=== PATIENT | male | born 1965 | race Caucasian/White ===

== ENCOUNTER 2017-04-16 09:33 | Day surgery (SDC) | payer OTHER ==
[~2017-04-16 09:33] MED LIST: Lactated Ringers 1,000 ML IV SCH
[2017-04-16] MEDS ORDERED: Octyl 2-Cyanoacrylate 1 Tube ONE (09:34)
[2017-04-16] MEDS ORDERED: Bupivacaine 0.25%/EPINEPHrine 1:200,000 10 ML SDV ONE (09:34)
[2017-04-16] MEDS ORDERED: fentaNYL 100 MCG/2 ML SDV ONE ×2 (09:35→11:08)
[2017-04-16] MEDS ORDERED: Midazolam 1 MG/ML 2 ML SDV ONE (09:35)
[2017-04-16] MEDS ORDERED: Propofol 200 MG/20 ML SDV ONE (09:35)
[2017-04-16] MEDS ORDERED: Ondansetron 4 MG/2 ML SDV ONE (09:37)
[2017-04-16] MEDS ORDERED: Dexamethasone 4 MG/ML 5 ML MDV ONE (09:37)
--- NOTE | 2017-04-16 10:30 | PCM.PREANE ---
Preanesthetic Assessment - Anesthesia/Transfusion/Family Hx Anesthesia History: Prior Anesthesia Without Reaction Family History of Anesthesia Reaction: No Transfusion History: No Prior Transfusion(s) - Review of Systems General: No Symptoms Pulmonary: No Symptoms Cardiovascular: No Symptoms Gastrointestinal: No Symptoms Neurological: No Symptoms Other: Reports: None - Physical Assessment NPO Status Date: 04/15/17 O2 Sat by Pulse Oximetry: 96 Respiratory Rate: 16 Vital Signs: Last Vital Signs Temp 36.7 C 04/16/17 10:10 Pulse 62 04/16/17 10:10 Resp 16 04/16/17 10:10 BP 127/85 04/16/17 10:10 Pulse Ox 96 04/16/17 10:10 Height: 1.85 m Weight: 117.027 kg ASA Class: 2 Mental Status: Alert & Oriented x3 Airway Class: Mallampati = 2 Dentition: Reports: Normal Dentition ROM/Head Extension: Full Lungs: Clear to Auscultation, Normal Respiratory Effort Cardiovascular: Regular Rate, Regular Rhythm - Allergies Allergies/Adverse Reactions: Allergies Allergy/AdvReac Type Severity Reaction Status Date / Time No Known Allergies Allergy Verified 04/13/17 14:05 - Acknowledgements Anesthesia Type Planned: General Anesthesia Pt an Appropriate Candidate for the Planned Anesthesia: Yes Alternatives and Risks of Anesthesia Discussed w Pt/Guardian: Yes Pt/Guardian Understands and Agrees with Anesthesia Plan: Yes PreAnesthesia Questionnaire HEENT History: Reports: Allergic Rhinitis, Hard of Hearing Endocrine/Metabolic History: Reports: Obesity/BMI 30+ - Past Surgical History HEENT Surgical History: Reports: Tonsillectomy GI Surgical History: Reports: Cholecystectomy Musculoskeletal Surgical History: Reports: Other (See Below) Other Musculoskeletal Surgeries/Procedures:: repair of torn ligaments left ankle - SUBSTANCE USE Smoking Status *Q: Never Smoker Recreational Drug Use History: No - HOME MEDS Home Medications: Home Meds Cyanocobalamin (Vitamin B-12) [Vitamin B-12] 1,000 mg PO DAILY 04/13/17 [History ] Fluticasone Propionate [Flonase Allergy Relief] 1 spray NASBOTH DAILY 04/13/17 [ History] Tumeric 1 cap PO DAILY 04/13/17 [History] diphenhydrAMINE HCl [Benadryl Allergy] 25 mg PO BID 04/13/17 [History] - CURRENT (IN HOUSE) MEDS Current Meds: Current Medications Fentanyl (Sublimaze) 50 mcg IVPUSH Q5M PRN PRN Reason: Pain (moderate 4-6) Stop: 04/16/17 14:00 Lactated Ringer's (Ringers, Lactated) 1,000 mls @ 100 mls/hr IV ASDIRECTED [facility] Last Admin: 04/16/17 10:09 Dose: 100 mls/hr Discontinued Medications Bupivacaine HCl/Epinephrine Bitart (Marcaine 0.25%/Epinephrine 1:200,000) Confirm Administered Dose 30 ml .ROUTE .STK-MED ONE Stop: 04/16/17 09:35 Dexamethasone (Dexamethasone) Confirm Administered Dose 20 mg .ROUTE .STK-MED ONE Stop: 04/16/17 09:38 Fentanyl (Sublimaze) Confirm Administered Dose 100 mcg .ROUTE .STK-MED ONE Stop: 04/16/17 09:36 Lidocaine HCl (Xylocaine-Mpf 1%) Confirm Administered Dose 5 ml .ROUTE .STK-MED ONE Stop: 04/16/17 09:37 Midazolam HCl (Versed 1 Mg/Ml) Confirm Administered Dose 2 mg .ROUTE .STK-MED ONE Stop: 04/16/17 09:36 Octyl Cyanoacrylate (Dermabond Advance) Confirm Administered Dose 1 applic .ROUTE .STK-MED ONE Stop: 04/16/17 09:35 Ondansetron HCl (Zofran) Confirm Administered Dose 4 mg .ROUTE .STK-MED ONE Stop: 04/16/17 09:38 Propofol (Diprivan 20 Ml) Confirm Administered Dose 200 mg .ROUTE .STK-MED ONE Stop: 04/16/17 09:36
[2017-04-16] MEDS ORDERED: ePHEDrine 50 MG/ML SDV ONE (11:39)
--- NOTE | 2017-04-16 12:01 | PCM.OPNOTE ---
- General Post-Op/Procedure Note Date of Surgery/Procedure: 04/16/17 Operative Procedure(s): 1) back mass excisional bx. 2) incisional hernia rep, no mesh used Findings: 1) basck mass of 1.5 cm, like a gigantic skin tag w broad base, no pigment. 2) incisional hernia of fascia defect of 8 mm, primary rep, no mesh used; [id number] Pre Op Diagnosis: back mass recurrent and incisional hernia Post-Op Diagnosis: Same Anesthesia Technique: General LMA Primary Surgeon: Fransico Whitten Pathology: sent Complications: None Condition: Good
[2017-04-16] MEDS ORDERED: Acetaminophen/oxyCODONE 325-10 MG Tab PO ONE (12:05)
[2017-04-16] MEDS: fentaNYL 100 MCG/2 ML SDV IVPUSH PRN ×2 (12:19→12:26)
--- NOTE | 2017-04-16 12:37 | PCM.POSTAN ---
POST ANESTHESIA ASSESSMENT - MENTAL STATUS Mental Status: Alert - RESPIRATORY Respiratory Status: Respiratory Rate WNL - CARDIOVASCULAR CV Status: Pulse Rate WNL - GASTROINTESTINAL GI Status: No Symptoms - PAIN Pain Score: 4 - POST OP HYDRATION Hydration Status: Adequate & Stable
--- NOTE | 2017-04-16 12:39 | OR ---
SURGEON: Fransico Whitten MD DATE OF PROCEDURE: 04/16/2017 PREOPERATIVE DIAGNOSES: 1. Back mass. 2. Incisional hernia. PROCEDURE PERFORMED: 1. Back mass, excision and biopsy. 2. Incisional hernia repair, primary repair, no mesh used. COMPLICATIONS: None. FINDINGS: 1. The back mass is like a gigantic skin tag about 1 cm with a broad base. 2. The incisional hernia is with a fascial defect of 8 mm, closed primarily, no mesh used. PROCEDURE IN DETAIL: The patient was taken to the operating room and placed in supine position. Upon induction of LMA, the patient was prepped and draped in a sterile fashion. Time- out was being called, patient identified, procedure identified, antibiotic given, procedure then started. Ioban was applied prophylactically. Using a skin scalpel, an infraumbilical incision was made and curved around the umbilical stalk. The hernia was opened up. Fascial defect of 8 mm was observed, closed primary with 0 Ethibond and umbilical stalk was tacked down by use of 2-0 Vicryl, skin approximated by use of 4-0 Monocryl and Dermabond. The patient was repositioned into a left decubitus position left side down and right side up, and the back mass was located around the scapula area on the right side. Was prepped and draped in a sterile fashion, local given, and then using a skin scalpel, a fish-mouth incision was made at 3.1 cm x 1.6. Mass was sent off to pathology. Wound was closed by use of 2-0 Ethilon and appropriate dressing. The patient was repositioned to the supine position, awakened, extubated, and transferred to the recovery room in hemodynamically stable condition. The patient tolerated the procedure well. There were no intraoperative complications. Dr. Whitten was present throughout the procedure. As always, thank you for the kind referral. WHITNEY / MOLLY /[id number]
--- NOTE | 2017-04-16 13:02 | PCM48HPAN ---
Post Anesthesia Note - EVALUATION WITHIN 48HRS OF ANESTHETIC Vital Signs in Normal Range: Yes Patient Participated in Evaluation: Yes Respiratory Function Stable: Yes Airway Patent: Yes Cardiovascular Function Stable: Yes Hydration Status Stable: Yes Pain Control Satisfactory: Yes Nausea and Vomiting Control Satisfactory: Yes Mental Status Recovered: Yes
== END 2017-04-16 14:14 | disposition home or self-care (01) ==
LOC: MW.SDS 09:33
PROVIDERS: ATTEND Surgery
DX: D36.17 Benign neoplasm of peripheral nerves and autonomic nervous system of trunk, unspecified (principal); K43.2 Incisional hernia without obstruction or gangrene; K21.9 Gastro-esophageal reflux disease without esophagitis; Z79.899 Other long term (current) drug therapy; Z90.49 Acquired absence of other specified parts of digestive tract
CPT/HCPCS: 49560; 64788; A9270; J1100; J2250; J2405; J3010; J7120; 00832; 88304; J2704